=== PATIENT | male | born 1985 | race Caucasian/White ===

== ENCOUNTER → 2024-09-12 | Outpatient (CLI) | payer OTHER ==
[~2024-09-12] VITALS: Ht 182.9 cm; Wt 87.0 kg
[~2024-09-12] MED LIST: LAMICTAL 100MG100 MG PO
[2024-09-12 14:08] VITALS: BP 121/73
[2024-09-12 14:28] LABS: HEMATOCRIT 44.1 % (42.0-52.0); HEMOGLOBIN 15.6 g/dL (13.5-18.0)
[2024-09-12 15:45] VITALS: BP 115/68
--- NOTE | 2024-09-12 15:46 | NUR ---
PT HERE FOR THERAPEUTIC PHLEBOTOMY. EDUCATION PROVIDED ON LAST VISIT. HGB 15.6 HCT 44.1 AND FERRITIN 191 WITH BP 115/68 PRIOR TO PROCEDURE. TIMEOUT DONE AT 1525. STARTED PHLEBOTOMY AT 1527 AND ENDED AT 1537. TOTAL VOL OF BLOOD REMOVED WAS 500ML. PT MARTIN PROCEDURE WELL. DENIES ANY DIZZINESS OR OTHER SYMPTOMS. DC'D INT. HELD PRESSURE X5 MIN. APPLIED PRESSURE DRESSING. BP 115/68 AND HR 54 AFTER PHLEBOTOMY. PT SCHEDULED NEXT APPT FOR 2 WEEKS. LEFT FACILITY AMBULATORY WITH FRIEND.
== END ==
LOC: AMSURD 13:54
PROVIDERS: Family Medicine
DX: E83.110 Hereditary hemochromatosis (principal)

== ENCOUNTER → 2024-09-26 | Outpatient (CLI) | payer OTHER ==
[~2024-09-26] VITALS: Ht 182.9 cm; Wt 87.0 kg
[2024-09-26 14:15] VITALS: BP 127/80
[2024-09-26 14:19] LABS: HEMATOCRIT 44.7 % (42.0-52.0); HEMOGLOBIN 16.1 g/dL (13.5-18.0)
--- NOTE | 2024-09-26 17:41 | NUR ---
PT HERE FOR THERAPEUTIC PHLEBOTOMY. CONSENT ON FILE AND EDUCATION PROVIDED AT PREVIOUS APPT. PT DENIES HAVING ANY QUESTIONS. PRIOR TO PROCEDURE, BP IS 127/80, HGB16.1, HCT 44.7 AND FERRITIN 157. TIMEOUT DONE AT 1508 AND PHLEBOTOMY STARTED AT 1510. STOPPED AT 1522. TOTAL VOLUME OF 500ML BLOOD WITHDRAWN. POST-PROCEDURE BP 117/71, HR 59. PT MARTIN WELL. DENIES ANY LIGHTHEADEDNESS. DC'D INT. APPLIED PRESSURE X5MIN AND APPLIED PRESSURE WRAP. PT SCHEDULED TO RETURN IN 2 WEEKS. LEFT FACILITY AMBULATORY WITH FRIEND TO DRIVE HIM HOME.
== END ==
LOC: AMSURD 13:45
PROVIDERS: Family Medicine
DX: E83.110 Hereditary hemochromatosis (principal)

== ENCOUNTER → 2024-10-10 | Outpatient (CLI) | payer OTHER ==
[~2024-10-10] VITALS: Ht 182.9 cm; Wt 87.0 kg
[2024-10-10 09:20] LABS: HEMATOCRIT 47.3 % (42.0-52.0); HEMOGLOBIN 16.7 g/dL (13.5-18.0)
[2024-10-10 09:21] VITALS: BP 121/78
== END ==
LOC: AMSURD 08:58
DX: E83.110 Hereditary hemochromatosis (principal)

== ENCOUNTER → 2024-10-24 | Outpatient (CLI) | payer OTHER ==
[~2024-10-24] VITALS: Ht 182.9 cm; Wt 87.0 kg
[2024-10-24 14:54] VITALS: BP 135/78
[2024-10-24 15:04] LABS: HEMATOCRIT 43.6 % (42.0-52.0); HEMOGLOBIN 15.5 g/dL (13.5-18.0)
== END ==
LOC: AMSURD 14:43
PROVIDERS: Family Medicine
DX: E83.110 Hereditary hemochromatosis (principal)